=== PATIENT | male | born 1985 | race Caucasian/White ===

== ENCOUNTER 2016-06-23 10:27 | Outpatient (RCR) | payer BC | END 2016-09-21 | disposition home or self-care (01) | LOC: DT 10:27 | PROVIDERS: ATTEND Family Medicine | DX: E66.09 Other obesity due to excess calories (principal); Z68.31 Body mass index [BMI] 31.0-31.9, adult; Z71.3 Dietary counseling and surveillance | CPT/HCPCS: 97802 ==